=== PATIENT | male | born 1975 | race African-American/Black ===

== ENCOUNTER 2017-12-02 10:51 | Emergency (ER) | payer SELFPAY ==
[2017-12-02 10:51] VITALS: BP 109/70; PULSE 77; RESP 15; TEMP 36.6; O2SAT 99; BMI 22.6
--- NOTE | 2017-12-02 11:24 | ED.VISSUMM ---
- ER Visit Summary Date of Service: 12/02/17 Chief Complaint: Abdominal pain History of Present Illness: The patient is a 42 M presenting with abdominal pain, nausea, diarrhea. He states this started on Friday. He states that he ate leftover pizza that sat out overnight on Friday morning. He then began to feel ill. He has had nausea and diarrhea. He states he had 2-3 episodes of diarrhea per day until today the diarrhea has improved. Denies blood in his stool. He has had subjective fever. He has had no recent antibiotics. No other complaints. Physical Examination: Vitals are stable. Patient is afebrile. Alert no acute distress. HEENT exam is unremarkable. Neck is supple. Lungs are clear and equal bilaterally. Heart is regular rate and rhythm. Abdomen is soft mild epigastric tenderness, no rebound or guarding Extremities are unremarkable. Skin is warm and dry. Remainder of exam is unremarkable. Emergency Department Course and Treatment: Patient is given IV fluids, Zofran. CBC, chemistries unremarkable. Liver lipase are normal. He was able to tolerate p.o. in the emergency department. He is resting comfortably on reevaluation. He is given a prescription for Zofran. Advised to follow-up with Dr. Abebe inspection supervisor for no doc. Advised return to ED for worsening complaints. Disposition: Discharge home Impression: Abdominal pain, diarrhea This note was generated with [employer] dictation software. It may contain incorrect words, spelling, and punctuation that were not noted in review of the chart prior to signing ED Disposition - Plan for ED Patient: Chief Complaint: Abd Pain Instructions: ED Abdominal Pain Unkn Cause Prescriptions: Ondansetron [Zofran Odt] 4 mg PO Q8H PRN PRN #10 tablet PRN Reason: Nausea Referrals: Saurabh Abebe MD [STAFF PHYSICIAN] - Care Physician,No Primary [Primary Care Provider] -
[2017-12-02] MEDS: 0.9% Normal Saline 1,000 ML 999 ML IV (11:30)
[2017-12-02] MEDS: Ondansetron 4 MG/2 ML Vial IV (11:30)
[2017-12-02 11:38] LABS: Absolute Lymphocyte Count 1.82 X10^3/ul (0.83-4.51); Absolute Neutrophil Count 2.2 X10^3/uL (2.0-7.7); Basophil# 0.04 X10^3/uL; Basophil% 0.8 % (0-1); Eosinophil# 0.14 X10^3/uL; Hemoglobin 14.7 g/dl (13.0-16.5); Lymphocyte # 1.82 X10^3/ul (4.0); Lymphocyte % 38.4 % (19-41); Mean Corp Hgb Conc 32.7 g/gl (32-36); Mean Corpuscular Hgb 31.4 pg (27.0-32.0); Mean Corpuscular Volume 96.2 fL (80-94); Mean Platelet Vol. 9.1 fl (6.2-12.0); Monocyte# 0.51 X10^3/uL; Monocyte% 10.8 % (0-10); Neutrophil # 2.22 X10^3/uL (2.7-7.7); Neutrophil % 46.8 % (47-70); POSITIVE COUNT NO; POSITIVE DIFFERENTIAL NO; POSITIVE MORPHOLOGY NO; Platelet Count 221 K/mm3 (150-450); RBC Distribution Width CV 13.1 % (11.6-14.6); Red Blood Count 4.68 M/mm3 (4.6-6.2); White Blood Count 4.7 K/mm3 (4.4-11.0)
[2017-12-02 11:52] LABS: ALB/GLOB Ratio 0.7 RATIO (0.9-2.4); AST(SGOT) 19 U/L (15-37); Alanine Aminotransfer ALT/SGPT 24 U/L (16-61); Albumin, Serum 3.5 g/dL (3.2-5.0); Alkaline Phosphatase 69 U/L (45-117); Anion Gap 5 (5-15); BUN 13 mg/dL (7-18); BUN/Creat Ratio 11.4 RATIO (10-20); Calcium,Total 8.6 mg/dL (8.5-10.1); Chloride 108 mmol/L (98-107); Creatinine, Serum 1.14 mg/dL (0.70-1.30); EST Glomerular Filtration Rate 74 mL/min (>60); Est Glom Filt Rate - Afr Amer 90 mL/min (>60); Estimated Creatinine Clearance 85.96 ml/min; Globulin 4.7 g/dL (2.2-4.2); Glucose 84 mg/dL (74-106); Lipase 142 U/L (73-393); Protein, Total 8.2 g/dL (6.4-8.2); Sodium Level 141 mmol/L (136-145)
--- NOTE | 2017-12-02 12:12 | ED.DEP ---
ED Disposition - Plan for ED Patient: Chief Complaint: Abd Pain Instructions: ED Abdominal Pain Unkn Cause Prescriptions: Ondansetron [Zofran Odt] 4 mg PO Q8H PRN PRN #10 tablet PRN Reason: Nausea Referrals: Care Physician,No Primary [Primary Care Provider] - Saurabh Abebe MD [STAFF PHYSICIAN] -
[2017-12-02 12:31] VITALS: BP 112/80; PULSE 69; RESP 18; O2SAT 99
== END 2017-12-02 12:39 | disposition home or self-care (01) ==
LOC: ED 12:32
PROVIDERS: Emergency Provider Emergency Medicine
DX: R10.13 Epigastric pain (principal); R19.7 Diarrhea, unspecified
CPT/HCPCS: 36591; 80053; 83690; 85025; 96374; 99283; J7030; A4216; J2405